=== PATIENT | female | born 1975 | race Caucasian/White ===

== ENCOUNTER → 2016-10-17 | Outpatient (CLI) | payer BC ==
[2016-07-20 18:37] VITALS: BP 161/102
[~2016-10-17] MED LIST: CYCL10TA2 PO; HYDR-2666 PO; MELO-156 PO
--- NOTE | 2016-10-17 13:49 | KCIC ---
PROCEDURE Arthritic series HISTORY Polyarthralgia. COMPARISON None FINDINGS AP pelvis Hip joints are intact. No evidence of bone erosion. There is some density in the left pelvis, overlying the lower lateral sacrum, of uncertain origin, could be bone or soft tissue. Measures approximately 20 millimeters. Single-view lateral cervical spine There is flexion of the cervical spine. Mild spondylosis of C5-C6 with slight disc space narrowing and marginal osteophytes. Prevertebral soft tissues appear within normal limits. No evidence of bone destruction. C1 through C6 seen on the lateral view. Bilateral standing AP knee Joint space intact. No evidence of bone destruction. Bilateral AP hand Joint spaces are intact. No evidence of bone destruction. No obvious soft tissue swelling. Bilateral single view oblique feet Joint spaces are intact. Note is made of a bifid medial hallux sesamoid bilaterally. No evidence bone destruction. There is a metallic structure identified at soft tissues of the medial base of the left 4th toe. IMPRESSION 1. Mild cervical spondylosis. 2. Metallic structure at the base of the medial left 4th toe potentially a soft tissue foreign body. 3. Indeterminate density overlying the lower left lateral sacrum could be of bone origin, such as a large bone island, or soft tissue etiology. Significance uncertain but CT pelvis could further evaluate as indicated. Electronically signed by: Ming Arce MD (Oct 17, 2016 13:47:27)
== END | disposition home or self-care (01) ==
LOC: KCIC 11:54
PROVIDERS: ATTEND Internal Medicine Rheumatology
DX: M19.90 Unspecified osteoarthritis, unspecified site (principal); M25.50 Pain in unspecified joint; M47.892 Other spondylosis, cervical region
CPT/HCPCS: 72020; 72170; 73120; 73565; 73620